=== PATIENT | female | born 1965 | race Caucasian/White ===

== ENCOUNTER 2023-09-30 17:44 | Emergency (ER) | payer BC, SELFPAY ==
[2023-09-30 17:54] VITALS: BP 136/87; BMI 24.0
[2023-09-30 18:14] LABS: % Basophils 0.9 % (0-2); % Eosinophils 3.9 % (0-6); % Immature Granulocytes 0.3 % (0-0.5); % Lymphocytes 38.3 % (20.5-51.1); % Monocytes 8.1 % (1.7-9.3); % Neutrophils 48.5 % (42.2-75.2); Absolute Basophils 0.1 10^3/uL (0-0.2); Absolute Eosinophils 0.3 10^3/uL (0-0.7); Absolute Lymphocytes 2.9 10^3/uL (1.2-3.4); Absolute Monocytes 0.6 10^3/uL (0.1-0.6); Absolute Neutrophils 3.6 10^3/uL (1.4-6.5); Hematocrit 36.7 % (37.0-47.0); Hemoglobin 12.8 g/dL (12.0-16.0); Mean Corp Hgb Conc. 34.9 g/dL (33.0-37.0); Mean Corpuscular Hgb 30.5 pg (27.0-31.0); Mean Corpuscular Volume 87.6 fL (81.0-99.0); Mean Platelet Volume 10.2 fL (7.4-10.4); Nucleated Red Blood Cells % 0 %; Platelet Count 289 10^3/uL (130-400); Red Blood Cell Count 4.19 10^6/uL (4.20-5.40); Red Cell Dist. Width 12.8 % (11.5-14.5); White Blood Cell Count 7.4 10^3/uL (4.8-10.8)
[2023-09-30 18:26] LABS: ALT (SGPT) 32 U/L (0-35); AST (SGOT) 31 U/L (14-36); Albumin 4.4 g/dl (3.5-5.0); Alkaline Phosphatase 59 U/L (38-126); Blood Urea Nitrogen 21 mg/dl (7-17); Calcium 10.1 mg/dl (8.4-10.2); Carbon Dioxide 23 mmol/L (22-30); Chloride 102 mmol/L (98-107); Estimated Creatinine Clearance 75 ml/min; Glucose 97 mg/dl (70-99); Potassium 4.1 mmol/L (3.5-5.1); Sodium 133 mmol/L (135-145); Total Bilirubin 0.4 mg/dl (0.2-1.3); Total Protein 7.3 g/dl (6.3-8.2); eGFR > 60.00
[2023-09-30 18:37] LABS: Troponin I < 0.012 ng/ml
--- NOTE | 2023-09-30 19:18 | ED.GENMED ---
Addendum entered and electronically signed by Shantanu Garcia DO 09/30/23 22:02:
Update, patient feeling better chest x-ray report noted labs noted will discharge on a bland diet and PPI
Original Note:
History of Present Illness
General
Chief Complaint: Abdominal Symptoms
Source: patient
Exam Limitations: none
Time Seen by Provider: 09/30/23 19:16
Nursing documentation reviewed up to this point in time: agreed with
Travel History
Have you had any contact with someone who has COVID-19?: No
Do you have any symptoms of coronavirus? Fever > 100 degrees, chills, cough, shortness of breath, sore throat, loss of taste or smell, muscle aches, or headache?: No
History of Present Illness
History of Present Illness:
57-year-old female history of hypothyroidism hyperlipidemia ex-smoker many years ago social drinker was with some friends Thursday night drank a lot of hard liquor was up pulmonary vomiting for about 12 hours some pain in her chest afterwards she is
concerned because she still having pain both her mother and father had heart disease, vomiting is better she is tolerating a diet, she was vomiting bile not vomiting blood, no diarrhea no abdominal pain
Past History
Past History
ED Past Medical History: Hypercholesterolemia, Psychiatric (anxiety) and Other (bronchitis, hypothyroidism )
ED Past Surgical History: Other (Noncontributory)
Social History
Tobacco: Former smoker
Alcohol: Occasional
Drug: None
Personal:
Living: with family
Employment: Employed (Teacher)
Family History
Family History: Diabetes, CAD and Other (Atrial fibrillation, hypothyroidism )
Review of Systems
Review of Systems
All Other Systems: Not applicable
Constitutional: Denies fever or fatigue
EENT: Reports no symptoms
Respiratory: Reports no symptoms; Denies trouble breathing
Cardiac: Reports chest pain
ABD/GI: Reports no symptoms
: Reports no symptoms
Musculoskeletal: Reports no symptoms
Skin: Reports no symptoms
Neurological: Reports no symptoms
Hematologic/Lymphatic: Reports no symptoms
Psychiatric: Reports no symptoms
Phy Exam
Physical Exam
Physical Exam:
Physical Exam
General: no apparent distress, not acutely ill
Neck: No jaundice
Heart: Regular
Lungs: Clear
Abdomen: Not tender
Neuro: alert and oriented. no focal neurological deficits
Skin: no rash
Psychiatric: well kept. interactive and cooperative
Extremities: no edema. no calf tenderness.
Scores
Heart Score for Chest Pain Patients
STEMI patient?: No
History: Slightly or Non-Suspicious
ECG: Normal
Age: >45 - <65 years
Risk Factors: 1 or 2 Risk Factors
Troponin: </= Normal Limit
Heart Score for Chest Pain Patients: 2
Heart Score Risk: 2.5% MACE over next 6 weeks
Course
Orders/Labs/Results
Orders:
Orders
09/30/23 17:57
Electrocardiogram (*1) Urgent
Reason for Study: Chest Pain
EKG- Treatment ONCE
09/30/23 18:06
Complete Blood Count/With Diff Urgent
Comprehensive Metabolic Panel Urgent
Lipase Urgent
Comment: ADD ON
Troponin I Urgent
09/30/23 19:18
Add On- LAB Urgent
Tests Added?: lipase
09/30/23 19:34
0.9% Sodium Chloride 1000 ml [Nss] 1,000 ml IV BOLUS
Acetaminophen [Tylenol] 650 mg PO NOW STA
09/30/23 19:35
CR Chest - 2 Views Urgent
Comment:
Reason For Exam: cp
09/30/23 19:39
Pantoprazole [Protonix IV] 40 mg IV NOW STA
09/30/23 19:42
Pantoprazole [Protonix IV] 40 mg .ROUTE .STK-MED ONE
Pantoprazole [Protonix IV] 40 mg IV NOW STA
10/01/23 08:00
Pantoprazole [Protonix IV] 40 mg IV DAILY
Abnormal Lab Results
09/30/23
18:06
RBC 4.19 L 10^6/uL
(4.20-5.40)
Hct 36.7 L %
(37.0-47.0)
Sodium 133 L mmol/L
(135-145)
BUN 21 H mg/dl
(7-17)
09/30/23 18:06
09/30/23 18:06
Vital Signs
Initial and Last Documented VS:
Initial Vital Signs
Temp Pulse Resp BP Pulse Ox
98.2 F 73 20 136/87 98
09/30/23 17:54 09/30/23 17:54 09/30/23 17:54 09/30/23 17:54 09/30/23 17:54
Last Documented Vital Signs
Temp Pulse Resp BP Pulse Ox
98.2 F 58 20 127/83 98
09/30/23 17:54 09/30/23 20:00 09/30/23 17:54 09/30/23 19:55 09/30/23 17:54
MDM/Problems Addressed
Differential Diagnosis Includes:
Gastritis pancreatitis esophagitis doubt esophageal perforation
MDM/Problems Addressed:
Chest pain, after vomiting from alcohol
*Radiology
Radiology exam reviewed: preliminary read by ED provider
*Pulse Oximetry
Patient hypoxic: no
*EKG
Interpreted by ED Provider?: Yes
Interpretation: normal
Comparison EKG: no comparison EKG present
Heart Rate: 68
Rate: normal
Rhythm: sinus
Ischemia: non-specific ST changes
*Geophysicist Interpretation
Rate: normal
Interpretation: normal
Heart Rate: 68
Rhythm: sinus
*Critical Care Note
Total Time (30-74mins, 75-104mins- exclusive of procedures): Not Applicable
Update Note
Update Note:
Update will hydrate, start on PPI, check chest x-ray, clinically do not suspect esophageal perforation she is very well-appearing, greater than 36-48 hours out from the vomiting
ED Attending Note
-
Portions of this chart may have been created with voice recognition software.� Occasional wrong word or��sound alike� substitutions may have occurred due to the inherent limitations of voice recognition software.
Discharge Plan
Departure
Prescriptions:
No Action
alprazolam 0.25 MG tablet
0.25 mg PO HS
vekdunczgn-kjbenbdopzyze-gbks 1 TAB tablet
1 tab PO Q6HPRN PRN (Reason: migraines)
cyclosporine [Restasis] 10 DROPS dropperette
1 drp BOTH EYES BID
levothyroxine 100 MCG tablet
100 mcg PO DAILY
alprazolam 0.5 MG tablet
0.5 mg PO Q6HPRN PRN (Reason: anxiety)
ondansetron 4 MG tablet,disintegrating
4 mg PO TIDPRN PRN (Reason: nausea/vomiting) Qty: 12 0RF
cyclobenzaprine 10 MG tablet
10 mg PO TIDPRN PRN (Reason: spasm) Qty: 12 0RF
ibuprofen 600 MG tablet
600 mg PO Q6HPRN PRN (Reason: pain) Qty: 12 0RF
Referrals:
Du Manuel DO [Family Provider] -
Interventions
Interventions:
*Risk Screen - Suicide Last Done: 09/30/23 17:54
*General Assessment Last Done: 09/30/23 19:53
*Neglect/Abuse Screening Last Done: 09/30/23 17:54
ED- Fall Risk Assessment Last Done: 09/30/23 17:54
*ED COVID-19 Vaccine History Last Done: 09/30/23 19:53
DP-Oylwxh-Knzevqvldp Assessment Last Done: 09/30/23 19:56
Discharge Date and Time
Print Language: PAKISTANI
[2023-09-30 19:49] LABS: Lipase 156 U/L (23-300)
[2023-09-30] MEDS: TYLENOL 650 MG PO (19:50)
[2023-09-30] MEDS: NSS 1000 IV (19:50)
[2023-09-30] MEDS: PROTONIX IV 40 MG IV (19:51)
[2023-09-30 19:55] VITALS: BP 127/83
[2023-09-30 21:00] VITALS: BP 121/80
--- NOTE | 2023-09-30 21:59 | ED.GENMED ---
History of Present Illness
General
Chief Complaint: Abdominal Symptoms
Time Seen by Provider: 09/30/23 19:16
Travel History
Have you had any contact with someone who has COVID-19?: No
Do you have any symptoms of coronavirus? Fever > 100 degrees, chills, cough, shortness of breath, sore throat, loss of taste or smell, muscle aches, or headache?: No
Past History
Past History
ED Past Medical History: Hypercholesterolemia, Psychiatric (anxiety) and Other (bronchitis, hypothyroidism )
ED Past Surgical History: Other (Noncontributory)
Social History
Tobacco: Former smoker
Alcohol: Occasional
Drug: None
Personal:
Living: with family
Employment: Employed (Teacher)
Family History
Family History: Diabetes, CAD and Other (Atrial fibrillation, hypothyroidism )
Course
Orders/Labs/Results
Orders:
Orders
09/30/23 17:57
Electrocardiogram (*1) Urgent
Reason for Study: Chest Pain
EKG- Treatment ONCE
09/30/23 18:06
Complete Blood Count/With Diff Urgent
Comprehensive Metabolic Panel Urgent
Lipase Urgent
Comment: ADD ON
Troponin I Urgent
09/30/23 19:18
Add On- LAB Urgent
Tests Added?: lipase
09/30/23 19:34
0.9% Sodium Chloride 1000 ml [Nss] 1,000 ml IV BOLUS
Acetaminophen [Tylenol] 650 mg PO NOW STA
09/30/23 19:35
CR Chest - 2 Views Urgent
Comment:
Reason For Exam: cp
09/30/23 19:39
Pantoprazole [Protonix IV] 40 mg IV NOW STA
09/30/23 19:42
Pantoprazole [Protonix IV] 40 mg .ROUTE .STK-MED ONE
Pantoprazole [Protonix IV] 40 mg IV NOW STA
10/01/23 08:00
Pantoprazole [Protonix IV] 40 mg IV DAILY
Abnormal Lab Results
09/30/23
18:06
RBC 4.19 L 10^6/uL
(4.20-5.40)
Hct 36.7 L %
(37.0-47.0)
Sodium 133 L mmol/L
(135-145)
BUN 21 H mg/dl
(7-17)
09/30/23 18:06
09/30/23 18:06
Vital Signs
Initial and Last Documented VS:
Initial Vital Signs
Temp Pulse Resp BP Pulse Ox
98.2 F 73 20 136/87 98
09/30/23 17:54 09/30/23 17:54 09/30/23 17:54 09/30/23 17:54 09/30/23 17:54
Last Documented Vital Signs
Temp Pulse Resp BP Pulse Ox
98.2 F 55 15 121/80 98
09/30/23 17:54 09/30/23 21:00 09/30/23 21:00 09/30/23 21:00 09/30/23 17:54
Update Note
Update Note:
Update patient feeling better chest x-ray report noted labs noted will discharge on PPI
ED Attending Note
-
Portions of this chart may have been created with voice recognition software.� Occasional wrong word or��sound alike� substitutions may have occurred due to the inherent limitations of voice recognition software.
Discharge Plan
Departure
Patient Disposition: Home (Routine Discharge)
Date of Disposition: 09/30/23
Time of Disposition: 21:59
Patient with high blood pressure during this ER visit?: No
Condition: Good
Discharge Problem:
GERD (gastroesophageal reflux disease)
Instructions: [place] Diet, Acid reflux and GERD in adults
Prescriptions:
New
pantoprazole [Protonix] 40 mg tablet,delayed release (DR/EC)
40 mg PO DAILY Qty: 20 0RF
No Action
alprazolam 0.25 MG tablet
0.25 mg PO HS
ddlpbgmsft-vukjpvqpdkiff-swze 1 TAB tablet
1 tab PO Q6HPRN PRN (Reason: migraines)
cyclosporine [Restasis] 10 DROPS dropperette
1 drp BOTH EYES BID
levothyroxine 100 MCG tablet
100 mcg PO DAILY
alprazolam 0.5 MG tablet
0.5 mg PO Q6HPRN PRN (Reason: anxiety)
ondansetron 4 MG tablet,disintegrating
4 mg PO TIDPRN PRN (Reason: nausea/vomiting) Qty: 12 0RF
cyclobenzaprine 10 MG tablet
10 mg PO TIDPRN PRN (Reason: spasm) Qty: 12 0RF
ibuprofen 600 MG tablet
600 mg PO Q6HPRN PRN (Reason: pain) Qty: 12 0RF
Referrals:
Du Manuel DO [Family Provider] -
Interventions
Interventions:
*Risk Screen - Suicide Last Done: 09/30/23 17:54
*General Assessment Last Done: 09/30/23 19:53
*Neglect/Abuse Screening Last Done: 09/30/23 17:54
ED- Fall Risk Assessment Last Done: 09/30/23 17:54
*ED COVID-19 Vaccine History Last Done: 09/30/23 19:53
HF-Ipryry-Cgogwvnfhp Assessment Last Done: 09/30/23 19:56
Discharge Date and Time
Print Language: PERSIAN
== END 2023-09-30 22:08 | disposition home or self-care (01) ==
LOC: EMR 17:44
PROVIDERS: Emergency Medicine; EMERGENCY PHYSICIAN Emergency Medicine; FAMILY PHYSICIAN Family Medicine
DX: K21.9 Gastro-esophageal reflux disease without esophagitis (principal); Z87.891 Personal history of nicotine dependence
CPT/HCPCS: 99285; 96374; 96361; 71046; 80053; 83690; 84484; 85025; 93005

== ENCOUNTER 2025-03-08 14:02 | Emergency (ER) | payer BC, SELFPAY ==
[2025-03-08 14:04] VITALS: BP 130/87
--- NOTE | 2025-03-08 14:47 | ED.SKININJ ---
HPI-Injury
General
Chief Complaint: Ear Problem
Source: patient
Exam Limitations: none
Time Seen by Provider: 03/08/25 14:30
Nursing documentation reviewed up to this point in time: agreed with
History of Present Illness-Injury
Initial Injury comments:
59-year-old female with history of migraines, HLD, hypothyroid, breast cancer with bilateral mastectomy 10/2024, neck lift 05/2024 presents for increasing pressure and pain in left ear.
02/24 she was unable to get into her ENT office so went to PCP, he sent her to urgent care where she states they removed a' little something/debris' there was small amount of bleeding and was discharged with antibiotic drops.
02/27 she went to her PCP as the pressure and pain were not improving, he told her her ear canal looked inflamed and put her on Cipro drops, a steroid and Keflex.
03/02 she felt even worse with pressure increasing, called her ENT and could not get an until next week.
She states she is here because she cannot stand the pressure that is building. The pressure goes up to 10/10 if she lays on that ear, the pain is there but the pressure is worse.
Past History
Past History
ED Past Medical History: Cancer (Breast cancer), Psychiatric (anxiety) and Other (bronchitis, hypothyroidism )
ED Past Surgical History: Cholecystectomy, Gynecological, Orthopedic and Other (Bilateral mastectomy 10/2024)
Social History
Tobacco: Former smoker
Alcohol: Occasional
Drug: None
Personal:
Living: with family
Employment: Employed (Teacher)
Family History
Family History: Diabetes, CAD and Other (Atrial fibrillation, hypothyroidism )
Review of Systems
Review of Systems
Allergies reviewed?: Yes
All Other Systems: ROS reviewed and negative except as documented in HPI and ROS
Phy Exam
Physical Exam
Physical Exam:
GENERAL: No acute distress. A&Ox3.
CONSTITUTIONAL: Afebrile.
EYES: clear, conjunctivae normal
ENMT: moist mucus membranes, Pharynx nl, no trismus. No mastoid tenderness. TM appears normal save for a small amount of scarring inferior border, ear canal appears normal. No pain with pulling on the ear, no TMJ tenderness. No
lymphadenopathy, no neck tenderness. No temporal tenderness
RESPIRATORY: Regular respirations, nonlabored, lungs clear.
CARDIOVASCULAR: Regular rate and rhythm, no murmurs, no rubs.
MUSCULOSKELETAL: Moves with ease. Well perfused.
SKIN: Warm, dry, pink
PSYCH: Normal mood and affect. Well kept, interactive and appropriate
NEUROLOGIC: Awake, alert and oriented. No focal neurological deficits
Course
Orders/Labs/Results
Orders:
Orders
03/08/25 14:47
CT Temporal-iac W/o Iv Contras Urgent
Comment:
Reason For Exam: pressure, pain L ear despite treatment.
Vital Signs
Initial and Last Documented VS:
Initial Vital Signs
Temp Pulse Resp BP Pulse Ox
98.5 F 74 16 130/87 98
03/08/25 14:04 03/08/25 14:04 03/08/25 14:04 03/08/25 14:04 03/08/25 14:04
Last Documented Vital Signs
Temp Pulse Resp BP Pulse Ox
98.2 F 77 18 128/85 98
03/08/25 18:32 03/08/25 18:32 03/08/25 18:32 03/08/25 18:32 03/08/25 18:32
MDM/Problems Addressed
Differential Diagnosis Includes:
OM, Otitis externa, mastoiditis, tumor, cholesteatoma
MDM/Problems Addressed:
59-year-old female with history of migraines, HLD, hypothyroid, breast cancer with bilateral mastectomy 10/2024, neck lift 05/2024 presents for increasing pressure and pain in left ear.
02/24 she was unable to get into her ENT office so went to PCP, he sent her to urgent care where she states they removed a' little something/debris' there was small amount of bleeding and was discharged with antibiotic drops.
02/27 she went to her PCP as the pressure and pain were not improving, he told her her ear canal looked inflamed and put her on Cipro drops, a steroid and Keflex.
03/02 she felt even worse with pressure increasing, called her ENT and could not get an until next week.
She states she is here because she cannot stand the pressure that is building. The pressure goes up to 10/10 if she lays on that ear, the pain is there but the pressure is worse.
Ear exam is normal. Pt expressing, significant pressure 'behind my eardrum.' Rest of ENT exam normal
6:10 PM:
CT temporal without IV contrast radiology report read: Normal copy of report given to patient
Suggested she try ibuprofen, antihistamine and follow-up with ENT next week as scheduled
She was pleasant and appreciative of the care.
*Pulse Oximetry
SaO2: 98
Oxygen Mode of Delivery: Room air
Patient hypoxic: no
*Critical Care Note
Total Time (30-74mins, 75-104mins- exclusive of procedures): Not Applicable
ED Attending Note
-
Portions of this chart may have been created with voice recognition software.� Occasional wrong word or��sound alike� substitutions may have occurred due to the inherent limitations of voice recognition software.
Discharge Plan
Departure
Patient Disposition: Home (Routine Discharge)
Date of Disposition: 03/08/25
Time of Disposition: 18:11
Patient with high blood pressure during this ER visit?: No
Condition: Good
Discharge Problem:
Pressure sensation in left ear
Prescriptions:
No Action
alprazolam 0.25 MG tablet
0.25 mg PO HS
djcuzegekj-lpjezikdabpag-xzvd 1 TAB tablet
1 tab PO Q6HPRN PRN (Reason: migraines)
cyclosporine [Restasis] 10 DROPS dropperette
1 drp BOTH EYES BID
levothyroxine 100 MCG tablet
100 mcg PO DAILY
alprazolam 0.5 MG tablet
0.5 mg PO Q6HPRN PRN (Reason: anxiety)
ondansetron 4 MG tablet,disintegrating
4 mg PO TIDPRN PRN (Reason: nausea/vomiting) Qty: 12 0RF
cyclobenzaprine 10 MG tablet
10 mg PO TIDPRN PRN (Reason: spasm) Qty: 12 0RF
ibuprofen 600 MG tablet
600 mg PO Q6HPRN PRN (Reason: pain) Qty: 12 0RF
pantoprazole [Protonix] 40 mg tablet,delayed release (DR/EC)
40 mg PO DAILY Qty: 20 0RF
Referrals:
Du Manuel DO [Family Provider, Family Practice]
Activity Restrictions/Additional Instructions:
As we discussed, your CAT scan is normal.
You may try an antihistamine such as Claritin or Zyrtec and see if within a few days it helps.
Interventions
Interventions:
*Risk Screen - Suicide Last Done: 03/08/25 14:04
*General Assessment Last Done: 03/08/25 14:04
*Neglect/Abuse Screening Last Done: 03/08/25 14:04
*ED- Fall Risk Assessment Last Done: 03/08/25 14:04
*ED COVID-19 Vaccine History Last Done: 03/08/25 14:04
*ED Influenza Vaccine History Last Done: 03/08/25 14:04
*Nursing Disposition Last Done: 03/08/25 18:32
Discharge Date and Time
Discharge Date/Time: 03/08/25 18:10
Print Language: BERMUDIAN
[2025-03-08 14:50] VITALS: BMI 25.1
--- NOTE | 2025-03-08 18:10 | EDRN ---
Discharge instructions given to patient by Ursula ARREOLA. Ambulated with steady gait to the [facility].
[2025-03-08 18:32] VITALS: BP 128/85
== END 2025-03-08 18:10 | disposition home or self-care (01) ==
LOC: EMR 14:02
PROVIDERS: EMERGENCY PHYSICIAN Student in an Organized Health Care Education/Training Program; FAMILY PHYSICIAN Family Medicine
DX: H93.8X2 Other specified disorders of left ear (principal); H92.02 Otalgia, left ear; E03.9 Hypothyroidism, unspecified; E78.5 Hyperlipidemia, unspecified; Z85.3 Personal history of malignant neoplasm of breast; Z87.891 Personal history of nicotine dependence; Z90.49 Acquired absence of other specified parts of digestive tract; Z90.13 Acquired absence of bilateral breasts and nipples
CPT/HCPCS: 99284; 70480

== ENCOUNTER 2025-03-22 07:35 | Outpatient (RCR) | payer BC, SELFPAY | END 2025-03-22 23:59 | disposition home or self-care (01) | LOC: RPT 07:35 | PROVIDERS: ATTENDING PHYSICIAN Surgery; FAMILY PHYSICIAN Family Medicine | DX: I97.2 Postmastectomy lymphedema syndrome (principal); D05.11 Intraductal carcinoma in situ of right breast; Z73.6 Limitation of activities due to disability; Z17.0 Estrogen receptor positive status [ER+]; Z90.13 Acquired absence of bilateral breasts and nipples | CPT/HCPCS: 97110; 97112; 97140; 97162; 97530 ==

== ENCOUNTER 2025-04-07 06:58 | Outpatient (RCR) | payer BC, SELFPAY | END 2025-04-07 10:15 | disposition home or self-care (01) | LOC: RPT 06:58 | PROVIDERS: ATTENDING PHYSICIAN Surgery; FAMILY PHYSICIAN Family Medicine | DX: I97.2 Postmastectomy lymphedema syndrome (principal); D05.11 Intraductal carcinoma in situ of right breast; Z73.6 Limitation of activities due to disability; Z17.0 Estrogen receptor positive status [ER+]; Z90.13 Acquired absence of bilateral breasts and nipples | CPT/HCPCS: 97110; 97112; 97140; 97530 ==

== ENCOUNTER 2025-04-19 06:37 | Outpatient (RCR) | payer BC, SELFPAY | END 2025-04-19 23:59 | disposition home or self-care (01) | LOC: RPT 06:37 | PROVIDERS: ATTENDING PHYSICIAN Otolaryngology; FAMILY PHYSICIAN Family Medicine | DX: H92.02 Otalgia, left ear (principal); Z73.6 Limitation of activities due to disability; L90.5 Scar conditions and fibrosis of skin; R29.3 Abnormal posture; C50.919 Malignant neoplasm of unspecified site of unspecified female breast | CPT/HCPCS: 97110; 97140; 97162 ==

== ENCOUNTER 2025-05-15 07:15 | Outpatient (RCR) | payer BC, SELFPAY | END 2025-05-15 23:59 | disposition home or self-care (01) | LOC: RPT 07:15 | PROVIDERS: ATTENDING PHYSICIAN Otolaryngology; FAMILY PHYSICIAN Family Medicine | DX: H92.02 Otalgia, left ear (principal); Z73.6 Limitation of activities due to disability; L90.5 Scar conditions and fibrosis of skin; R29.3 Abnormal posture; C50.919 Malignant neoplasm of unspecified site of unspecified female breast | CPT/HCPCS: 97140; 97530 ==